=== PATIENT | female | born 1995 | race Caucasian/White ===

== ENCOUNTER 2017-12-16 10:25 | Emergency (ER) | payer MEDICAID ==
[~2017-12-16] VITALS: Ht 160 cm; Wt 60.8 kg
[2017-12-16 10:51] VITALS: Ht 160 cm; Wt 60.8 kg
[2017-12-16 11:47] LABS: BASOPHIL % 0.2 % (0-2); PLATELET COUNT 239 x10^3mcL (130-400); RED CELL DISTRIBUTION WIDTH 12.6 % (11.5-14.5)
[2017-12-16 12:03] LABS: UA SPECIFIC GRAVITY 1.025 (1.005-1.035); microscopic required? YES; urine erythrocyte 3+ (NEGATIVE)
[2017-12-16 14:03] VITALS: BP 118/70
== END 2017-12-16 14:03 | disposition home or self-care (01) ==
LOC: ED 10:25
PROVIDERS: Emergency Medicine
DX: O20.0 Threatened abortion (principal); Z3A.10 10 weeks gestation of pregnancy
CPT/HCPCS: 36415

== ENCOUNTER 2018-12-04 07:36 | Emergency (ER) | payer OTHER, MEDICAID ==
[~2018-12-04] VITALS: Ht 160 cm; Wt 58.5 kg
[2018-12-04 09:02] LABS: BASOPHIL % 0.3 % (0-2); PLATELET COUNT 213 x10^3mcL (130-400)
[2018-12-04 09:07] LABS: CALCIUM 9.1 mg/dL (8.5-10.1); CARBON DIOXIDE 24.1 mmol/L (21-32); CHLORIDE SERUM 106 mmol/L (98-107); CREATININE SERUM 0.7 mg/dL (0.6-1.0); GFR1 > 60 mL/min; GLUCOSE SERUM 100 mg/dL (74-106); POTASSIUM SERUM 3.6 mmol/L (3.5-5.1); SODIUM SERUM 141 mmol/L (136-145)
[2018-12-04 09:12] LABS: ALBUMIN 3.6 g/dL (3.4-5.0); ALKALINE PHOSPHATASE 113 U/L (46-116); ALT/SGPT 115 U/L (14-59); AST/SGOT 24 U/L (15-37); BILIRUBIN TOTAL 0.5 mg/dL (0.20-1.00); TOTAL PROTEIN, SERUM 7.2 g/dL (6.4-8.2)
[2018-12-04 12:20] VITALS: BP 107/69
== END 2018-12-04 12:20 | disposition home or self-care (01) ==
LOC: ED 07:36
PROVIDERS: Emergency Medicine
DX: R10.2 Pelvic and perineal pain (principal)
CPT/HCPCS: J2405; J3010; J7030

== ENCOUNTER 2020-03-25 13:17 | Emergency (ER) | payer OTHER ==
[~2020-03-25] VITALS: Ht 160 cm; Wt 57.2 kg
[2020-03-25 13:32] VITALS: BP 107/59; Ht 160 cm; Wt 57.2 kg
[2020-03-25 14:23] LABS: microscopic required? YES; urine erythrocyte 2+ (NEGATIVE)
== END 2020-03-25 14:28 | disposition home or self-care (01) ==
LOC: ED 13:17
PROVIDERS: Emergency Medicine
DX: N39.0 Urinary tract infection, site not specified (principal); Z98.890 Other specified postprocedural states; F12.10 Cannabis abuse, uncomplicated

== ENCOUNTER 2020-12-04 21:39 | Emergency (ER) | payer OTHER | END 2020-12-04 21:58 | disposition left against medical advice (07) | LOC: ED 21:39 | DX: Z53.21 Procedure and treatment not carried out due to patient leaving prior to being seen by health care provider (principal) ==